=== PATIENT | male | born 1935 | race Two or more races ===

== ENCOUNTER 2022-01-23 19:13 | Inpatient (IN) | payer MEDICARE, OTHER ==
[~2022-01-23] VITALS: Ht 182.9 cm; Wt 65.0 kg
[2022-01-23 19:56] LABS: Basophils # (auto) 0 10 ^3/uL (0-0.2); Basophils % (auto) 0.8 % (0.0-2.0); Eosinophils # (auto) 0.1 10 ^3/uL (0-0.8); Eosinophils % (auto) 1.2 % (0.0-7.0); Hematocrit 32.8 % (41.0-53.0); Hemoglobin 10.7 g/dL (13.5-17.5); Lymphocytes # (auto) 0.6 10 ^3/uL (0.4-5.4); Mean Corpuscular Hemoglobin 30.9 pg (28.0-32.0); Mean Corpuscular Hgb Conc. 32.6 g/dL (32.0-36.0); Mean Corpuscular Volume 94.9 fL (80.0-100.0); Monocytes # (auto) 0.4 10 ^3/uL (0-1.3); Neutrophils # (auto) 4.2 10 ^3/uL (1.6-8.6); Nucleated Red Blood Cells % 0.2 %; Red Blood Cells 3.46 10^6/uL (4.5-5.90); Red Cell Distribution Width 15.7 % (11.8-14.3); White Blood Cell 5.2 10^3/uL (4.4-10.8)
[2022-01-23 20:20] LABS: Albumin 2.8 g/dL (3.4-5.0); BUN/Creatinine Ratio 30.4; Calcium 8.7 mg/dL (8.5-10.1); Potassium 4.2 mmol/L (3.5-5.1)
[2022-01-23 20:25] LABS: Bilirubin, Total 0.5 mg/dL (0.2-1.0); Total Protein 5.9 g/dL (6.4-8.2)
[2022-01-24] MEDS ORDERED: SODIUM CHLORIDE 0.9% 1,000 ML IV ONE (00:20)
[2022-01-24] MEDS ORDERED: ACETAMINOPHEN 325 MG TAB PO PRN (00:45)
[2022-01-24] MEDS ORDERED: ONDANSETRON HCL 4 MG/2 ML VIAL IV PRN (00:45)
[2022-01-24] MEDS ORDERED: cefTRIAXone 1GM/50ML D5W 50 ML IV ONE (00:45)
[2022-01-24 01:01] LABS: Urine Amorphous Crystal FEW /hpf (None Seen); Urine Bacteria FEW /hpf (None Seen); Urine Blood 1+ /uL (Negative); Urine WBC 1 /hpf (0 - 3)
[2022-01-24] MEDS ORDERED: ALBUMIN 5% 250 ML IV ONE (02:30)
[2022-01-24 03:15] VITALS: BP 107/57
[2022-01-24 05:00] VITALS: BP 107/57
[2022-01-24] MEDS ORDERED: CHOL200031 PO (05:07)
[2022-01-24] MEDS ORDERED: LOSA25TA38 PO (05:07)
[2022-01-24] MEDS ORDERED: AMLO-489 PO (05:07)
[2022-01-24] MEDS ORDERED: CYAN-17 PO (05:07)
[2022-01-24 09:00] VITALS: BP 104/54
[2022-01-24] MEDS: FUROSEMIDE 40 MG TAB PO SCH (10:00)
[2022-01-24] MEDS ORDERED: CLOPIDOGREL BISULFATE 75 MG TAB PO SCH (10:00)
[2022-01-24] MEDS ORDERED: amLODIPine BESYLATE 5 MG TAB PO SCH (10:00)
[2022-01-24] MEDS ORDERED: LOSARTAN POTASSIUM 25 MG TAB PO SCH (10:00)
[2022-01-24] MEDS ORDERED: ENOXAPARIN SOD 40 MG/0.4 ML SYRINGE SC SCH (10:00)
[2022-01-24] MEDS: PANTOPRAZOLE 40 MG TAB PO SCH (10:14)
[2022-01-24 12:27] LABS: BUN/Creatinine Ratio 29.6; Calcium 8.3 mg/dL (8.5-10.1); Magnesium 2.4 mg/dL (1.6-2.6); Potassium 3.9 mmol/L (3.5-5.1)
[2022-01-24 12:47] LABS: Folate (Folic Acid) > 24.00 ng/mL (5.38-24)
[2022-01-24 13:00] VITALS: BP 107/59
[2022-01-24 16:30] VITALS: BP 112/58
[2022-01-24] MEDS: TAMSULOSIN HYDROCHLORIDE 0.4 MG CAP PO SCH (18:46)
[2022-01-24 19:50] LABS: Urine Bacteria NONE SEEN /hpf (None Seen); Urine Blood 3+ /uL (Negative); Urine WBC 161 /hpf (0 - 3)
[2022-01-24 22:00] VITALS: BP 100/56
[2022-01-24] MEDS: cefTRIAXone 1GM/50ML D5W 50 ML IV SCH (22:21)
[2022-01-24] MEDS: TEMAZEPAM 15 MG CAP PO PRN (22:23)
[2022-01-24] MEDS ORDERED: LORazepam 2MG/ML-1ML VIAL IV PRN (22:30)
[2022-01-25 05:00] VITALS: BP 102/54
[2022-01-25 05:26] LABS: Basophils # (auto) 0 10 ^3/uL (0-0.2); Basophils % (auto) 0.6 % (0.0-2.0); Eosinophils # (auto) 0.1 10 ^3/uL (0-0.8); Eosinophils % (auto) 1.2 % (0.0-7.0); Hematocrit 30.4 % (41.0-53.0); Hemoglobin 10.2 g/dL (13.5-17.5); Lymphocytes # (auto) 0.7 10 ^3/uL (0.4-5.4); Lymphocytes % (auto) 13.5 % (10.0-50.0); Mean Corpuscular Hemoglobin 31.7 pg (28.0-32.0); Mean Corpuscular Hgb Conc. 33.5 g/dL (32.0-36.0); Mean Corpuscular Volume 94.6 fL (80.0-100.0); Monocytes # (auto) 0.4 10 ^3/uL (0-1.3); Monocytes % (auto) 7.8 % (0.0-12.0); Neutrophils # (auto) 3.7 10 ^3/uL (1.6-8.6); Neutrophils % (auto) 76.9 % (37.0-80.0); Nucleated Red Blood Cells % 0.1 %; Red Blood Cells 3.21 10^6/uL (4.5-5.90); Red Cell Distribution Width 15.7 % (11.8-14.3); White Blood Cell 4.8 10^3/uL (4.4-10.8)
[2022-01-25 05:29] LABS: Calcium 8.6 mg/dL (8.5-10.1)
[2022-01-25] MEDS: HYDROcodone-ACET 5/325MG TAB PO PRN ×3 (06:37→20:21)
[2022-01-25 09:00] VITALS: BP 99/54
[2022-01-25] MEDS: FUROSEMIDE 40 MG TAB PO SCH (10:00)
[2022-01-25] MEDS: PANTOPRAZOLE 40 MG TAB PO SCH (10:34)
[2022-01-25 13:00] VITALS: BP 108/52
[2022-01-25 17:00] VITALS: BP 104/62
[2022-01-25] MEDS: TAMSULOSIN HYDROCHLORIDE 0.4 MG CAP PO SCH (18:32)
[2022-01-25] MEDS: TEMAZEPAM 15 MG CAP PO PRN (20:19)
[2022-01-25 22:00] VITALS: BP 108/58
[2022-01-25] MEDS: cefTRIAXone 1GM/50ML D5W 50 ML IV SCH (23:55)
[2022-01-26 05:52] LABS: Basophils # (auto) 0 10 ^3/uL (0-0.2); Basophils % (auto) 0.8 % (0.0-2.0); Eosinophils # (auto) 0.1 10 ^3/uL (0-0.8); Eosinophils % (auto) 1.1 % (0.0-7.0); Hematocrit 31.2 % (41.0-53.0); Hemoglobin 10.2 g/dL (13.5-17.5); Lymphocytes # (auto) 0.6 10 ^3/uL (0.4-5.4); Lymphocytes % (auto) 11.9 % (10.0-50.0); Mean Corpuscular Hemoglobin 30.9 pg (28.0-32.0); Mean Corpuscular Hgb Conc. 32.7 g/dL (32.0-36.0); Mean Corpuscular Volume 94.5 fL (80.0-100.0); Monocytes # (auto) 0.4 10 ^3/uL (0-1.3); Neutrophils # (auto) 3.7 10 ^3/uL (1.6-8.6); Neutrophils % (auto) 78.2 % (37.0-80.0); Red Cell Distribution Width 15.1 % (11.8-14.3); White Blood Cell 4.7 10^3/uL (4.4-10.8)
[2022-01-26 06:20] LABS: Potassium 4.1 mmol/L (3.5-5.1)
[2022-01-26 06:32] LABS: BUN/Creatinine Ratio 25.5; Calcium 8.6 mg/dL (8.5-10.1)
[2022-01-26 09:00] VITALS: BP 120/69
[2022-01-26] MEDS: PANTOPRAZOLE 40 MG TAB PO SCH (10:12)
[2022-01-26] MEDS: FUROSEMIDE 40 MG TAB PO SCH (10:12)
[2022-01-26] MEDS: HYDROcodone-ACET 5/325MG TAB PO PRN (10:12)
[2022-01-26] MEDS ORDERED: LEVO750T8 PO (11:59)
[2022-01-26] MEDS ORDERED: TAM04C PO (12:00)
[2022-01-26 13:00] VITALS: BP 115/59
[2022-01-26 15:48] VITALS: BP 115/69
== END 2022-01-26 16:30 | disposition home health service (06) | DRG 689 ==
LOC: EDBD 19:13 → EDSEX 19:13 → ER 19:15 → OVERFLOW 01-24 00:36 → WEST WING 01-24 03:05
PROVIDERS: ADMIT Nurse Practitioner; ATTEND Internal Medicine Pulmonary Disease
DX: N30.01 Acute cystitis with hematuria (principal); G93.41 Metabolic encephalopathy; L03.116 Cellulitis of left lower limb; Z68.1 Body mass index [BMI] 19.9 or less, adult; R55 Syncope and collapse; Z66 Do not resuscitate; I73.9 Peripheral vascular disease, unspecified; R62.7 Adult failure to thrive; L89.92 Pressure ulcer of unspecified site, stage 2; R91.1 Solitary pulmonary nodule; G62.9 Polyneuropathy, unspecified; Z20.822 Contact with and (suspected) exposure to COVID-19; E78.5 Hyperlipidemia, unspecified; I10 Essential (primary) hypertension; F03.90 Unspecified dementia, unspecified severity, without behavioral disturbance, psychotic disturbance, mood disturbance, and anxiety; F17.200 Nicotine dependence, unspecified, uncomplicated; J45.909 Unspecified asthma, uncomplicated; Z82.49 Family history of ischemic heart disease and other diseases of the circulatory system; Z83.3 Family history of diabetes mellitus
CPT/HCPCS: 36415; 70450; 71045; 71250; 76775; 80048; 80053; 81001; 82306; 82607; 82746; 83036; 83735; 84155; 84165; 84443; 84484; 85025; 87040; 87081; 93005; 93971; 96361; 96365; 96367; 97163; G0378; J0696